=== PATIENT | male | born 1985 | race Caucasian/White ===

== ENCOUNTER 2023-05-21 15:38 | Outpatient (CLI) | payer BC ==
--- NOTE | 2023-05-21 16:20 | Sleep Patient Instructions ---
Sleep Center Visit Summary - Patient Visit Information Reason for Visit: Initial consult for evaluation of sleep disordered breathing and other sleep issues. - Patient Instructions Instructions Attached: Sleep Study Home Monitor, Sleep Study Additional Instructions: You will be completing a sleep study, either an in-lab polysomnography (PSG) or home sleep study (HST). You will follow-up in the sleep care office after the sleep study is completed to hear the results and talk about therapy, if needed. You will be called by our office staff to schedule this appointment, but you may contact us with any questions. - Clinic Information Contact: [facility] [address] [place] [id number] [email or web address] T: [phone]
--- NOTE | 2023-05-21 16:24 | SLEEP CARE CONSULTATION ---
Information from patient questionnaire entered by Ruel Haque. I have reviewed and concur with the information entered by Ruel Haque. This document represents the service I personally performed and the decisions made by me, Donna Zavala ARNP. History of Present Illness Service Date and Time: 05/21/2023 1538 Reason for Visit: New patient Chief Complaint: reports: Snoring, Excessive daytime sleepiness, Observed pauses in breathing, Fatigue Date of Onset: DO NOT KNOW Usual bedtime: 9PM Time it takes to fall asleep: 5MINS Snores at night: Yes Observed to quit breathing while asleep: Yes Sleeps alone due to snoring: No Number of times waking at night: 4 Reasons for waking at night: reports: Pain, Bathroom. denies: Choking, Snoring, Gasping for air Toss, Turn, or Twitch while sleeping: Yes Recalls having dreams: Yes Usually gets out of bed at: 8AM Feels refreshed in the morning: No Morning headache: No Sleepy or fatigued during the day: Yes Ever fallen asleep while driving: No Takes day naps: Yes (used to always take a nap in afternoon; with new job/no naps excpt wkend) Dreams during day naps: No Prior sleep studies: Yes Additional HPI information: I had the pleasure of seeing VELMA HUBBARD today regarding the possibility of him having a sleep disorder. His current complaints are excessive daytime sleepiness, fatigue, observed pauses in breathing and snoring. His has encouraged him to see re-evaluation because he still snores loudly and will stop breathing. She has told him that the snoring is worse. He feels tired all the times and never wakes up feeling rested. He did have a sleep study in 2008 but it was negative at that time for sleep disordered breathing. He has gained about 30 pounds or more in the last 5 years. He states his father has sleep apnea. 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 Have you smoked in the past 12 months: No Alcohol use: Yes Alcohol amount and frequency: 1 WEEK Caffeine use: Yes Caffeine amount and frequency: 2 DAILY Family History Family history of sleep disordered breathing: Yes Family Hx Sleep Apnea: Father: Sleep apnea - Treated Allergies and Home Medications Known drug allergies: Yes (SULFA) Drug allergies reviewed: Yes Home medication list reviewed: Yes Allergy and home medication list: Allergies Sulfa (Sulfonamide Antibiotics) Allergy (Verified 05/21/23 16:02) Home Medications Brexpiprazole [Rexulti] See Rx Instructions .ROUTE .COMPLEX 05/21/23 [History] Cholecalciferol (Vitamin D3) [Vitamin D3] See Rx Instructions .ROUTE .COMPLEX 05/21/23 [History] Venlafaxine [Effexor] See Rx Instructions .ROUTE .COMPLEX 05/21/23 [History] Review of Systems Weight gain over past 5 years: 30 Cardiovascular: denies: high blood pressure Urinary: reports: frequency Neurological: denies: head trauma Psychiatric: reports: anxiety, depression Ear/Nose/Throat: reports: wisdom teeth removed. denies: injury to nose, tonsillectomy Endocrine: denies: thyroid disease Physical Exam Vital signs obtained and entered by: RUEL Medina MA Blood Pressure: 141/91 (LEFT ARM) Cuff size: regular Heart Rate: 94 O2 Saturation: 97 Height: 5 ft 8 in Weight: 287 lb 3.2 oz Body Mass Index: 43.7 BMI Classification: Morbidly Obese Neck circumference: 22 Mouth and throat: narrow oropharynx Soft palate: long Hard palate: normal Uvula: normal Uvula visualization: 50% Mallampati Class II Tongue: enlarged in size with teeth heller on lateral edges Tonsils: 2+ Neck: normal w/o lymphadenopathy or thyromegaly Heart: regular rate and rhythm Lungs: clear bilaterally Impression and Plan 1. Suspected Obstructive Sleep Apnea-Hypopnea Syndrome, as suggested by a history of loud and irregular snoring, observed cessation of breath while asleep, unrefreshed sleep, and excessive daytime sleepiness. Narrow oropharynx and obesity are common predisposing factors for obstructive sleep apnea-hypopnea syndrome. I recommend proceeding to polysomnography to confirm the diagnosis and to assess severity. If the patient has significant sleep disordered breathing, a manual CPAP titration study will also be performed to find the optimal treatment pressure. I informed the patient of what the sleep studies involve and after some discussion, obtained agreement to proceed. The pathophysiology of obstructive sleep apnea-hypopnea syndrome was discussed with the patient and health risks of cardiovascular and cerebrovascular disease if not treated. 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 Patient agreed to plan. * Schedule polysomnography +- manual CPAP titration study and return in 1-2 weeks after the study to discuss result and initiate therapy. * Avoid long distance driving or driving when feeling sleepy. * Avoid alcohol, sedative and muscle relaxant around bedtime. * Attempt to lose weight. * Review instructions provided by trained office staff on how to prepare for the sleep study. * Return for follow-up after sleep study completed. Counseling Topics: Weight loss health impact Plan: PSG/HST Visit Type: In Office Time Spent with Patient (minutes): 26 Provider Statement: I spent 100% of the Face to Face Visit with the patient with greater than 50% spent counseling the patient and coordination of care.
[2023-05-21 16:25] VITALS: BP 141/91; O2SAT 97
== END 2023-05-21 15:39 | disposition home or self-care (01) ==
LOC: SC 15:38
PROVIDERS: ATTEND Nurse Practitioner Family
DX: G47.10 Hypersomnia, unspecified (principal); R53.83 Other fatigue; R06.83 Snoring; G47.8 Other sleep disorders; R06.81 Apnea, not elsewhere classified; F32.A Depression, unspecified; E66.01 Morbid (severe) obesity due to excess calories; Z68.41 Body mass index [BMI] 40.0-44.9, adult
CPT/HCPCS: 99202; 99212

== ENCOUNTER 2023-06-29 07:28 | Outpatient (CLI) | payer BC | END 2023-06-29 07:29 | disposition home or self-care (01) | LOC: SC 07:28 | PROVIDERS: ATTEND Nurse Practitioner Family | DX: G47.33 Obstructive sleep apnea (adult) (pediatric) (principal); R09.02 Hypoxemia | CPT/HCPCS: 95806 ==

== ENCOUNTER 2023-07-20 14:52 | Outpatient (CLI) | payer BC ==
--- NOTE | 2023-07-20 15:14 | Sleep Patient Instructions ---
Sleep Center Visit Summary - Patient Visit Information Reason for Visit: Sleep study follow-up - Patient Instructions Instructions Attached: CPAP Additional Instructions: You are being started on CPAP therapy. You will be completing a titration sleep study in our sleep lab where you will be sleeping with the CPAP machine on and we will be adjusting your pressures to find your optimal pressure settings. Once we have your results back, we will call you and schedule a follow up to go over the results, you may contact us with any questions or issues as needed. - Clinic Information Contact: [facility] [address] [place] [address] [email or web address] T: [phone]
--- NOTE | 2023-07-20 15:18 | SLEEP CARE CONSULTATION ---
Information from patient questionnaire entered by Martha Haque. I have reviewed and concur with the information entered by Martha Haque. This document represents the service I personally performed and the decisions made by , Donna Zavala ARNP. History of Present Illness Service Date and Time: 07/20/20231451 Initial [place] Sleepiness Scale score: 6 (05/21/23) Current [place] Sleepiness Scale score: 11 Additional HPI information: VELMA HUBBARD returns for follow up and results of the recently performed home sleep study. The sleep study showed severe obstructive sleep apnea with an average AHI of 50.9 and john oxygen saturation of 73%. I explained the pathophysiology behind obstructive sleep apnea. We then spent quite a bit of time discussing different treatment options. For mild obstructive sleep apnea, surgery and oral appliance are alternatives to nasal CPAP therapy but in moderate or severe cases, nasal CPAP is the most effective and reliable treatment. I reviewed the impact of weight changes on sleep apnea and strongly recommended losing weight. After some discussion, the patient opted to go with the nasal CPAP therapy. A manual titration study will be ordered to find optimal pressure with office adjustments. Patient does not drink alcohol. Patient was cautioned about risks of drowsy driving until sleepiness symptoms resolve. Patient denies drowsy driving. Sleep Study - Results Type of Sleep Study: Home sleep study (COMPLETED 06/29/23) Prior sleep studies: Yes Polysomnography/Home Sleep Study results: Physician Impression: The quality of the study is good. The length of the study is adequate (> 240 minutes). Please also see the tabulated and graphic data. 1. Obstructive Sleep Apnea-Hypopnea (ICD-10 G47.33), severe, with an AHI of 50.9/hr and john SaO2 of 73%. During the study, the patient had 277 apneas (277 obstructive, 0 central, 0 mixed) and 238 hypopneas. The longest episode lasted 86.0 seconds. The respiratory events occurred more frequently during supine sleep (supine AHI was 86.4 and non-supine, 41.18). 2. Hypoxemia (ICD-10 R09.02), moderate, with the lowest oxygen saturation of 73 % and 66.3 minutes with SaO2 under 90%. Baseline oxygen saturation was normal (Average oxygen saturation was 92%). Allergies and Home Medications Known drug allergies: Yes (as listed) Drug allergies reviewed: Yes Home medication list reviewed: Yes (no changes) Allergy and home medication list: Allergies Sulfa (Sulfonamide Antibiotics) Allergy (Verified 07/16/23 16:09) Review of Systems Review of systems same as previous: Yes (no changes) Physical Exam Vital signs obtained and entered by: DONNA ARREDONDO Blood Pressure: 121/82 Cuff size: long (left arm) Heart Rate: 70 O2 Saturation: 99 Height: 5 ft 8 in Weight: 284 lb 9.6 oz Body Mass Index: 43.2 BMI Classification: Morbidly Obese Impression and Plan 1. Obstructive Sleep Apnea-Hypopnea Syndrome, severe, with lowest oxygen saturation of 73%. Obviously this is the cause of the patients symptoms of unrefreshed sleep, and excessive daytime sleepiness. Positive pressure therapy could benefit anxiety and depression. As mentioned above, the patient will be started on nasal autoCPAP therapy. A manual titration study will be completed to find optimal treatment pressure with office adjustments. Compliance guidelines also reviewed. A copy of compliance guidelines will be given for reference at check out. Because the apnea is more severe supine, I instructed to avoid sleeping supine using pillow positioning until able to start CPAP use. 2. Obesity, unspecified. Currently patients BMI is 43.2. Obesity increases the risk of apnea, CPAP pressure requirements and overall health risks especially cardiovascular and diabetes. Thus patient is advised to lose weight. * Titration study. * Attempt to lose weight. * Avoid alcohol consumption near bedtime. * Avoid supine sleep until using CPAP. * The patient is again cautioned about driving until sleepiness completely resolves. * Return after titration study to be set up on PAP therapy. Counseling Topics: Sleeping position, Weight loss health impact Plan: Titration study and followup Visit Type: In Office Time Spent with Patient (minutes): 20 Provider Statement: I spent 100% of the Face to Face Visit with the patient with greater than 50% spent counseling the patient and coordination of care.
[2023-07-20 15:52] VITALS: BP 121/82; O2SAT 99
== END 2023-07-20 14:53 | disposition home or self-care (01) ==
LOC: SC 14:52
PROVIDERS: ATTEND Nurse Practitioner Family
DX: G47.33 Obstructive sleep apnea (adult) (pediatric) (principal); E66.01 Morbid (severe) obesity due to excess calories; Z68.41 Body mass index [BMI] 40.0-44.9, adult
CPT/HCPCS: 99212; 99213

== ENCOUNTER 2023-09-03 20:35 | Outpatient (CLI) | payer BC | END 2023-09-03 20:36 | disposition home or self-care (01) | LOC: SC 20:35 | PROVIDERS: ATTEND Nurse Practitioner Family | DX: G47.33 Obstructive sleep apnea (adult) (pediatric) (principal); G47.61 Periodic limb movement disorder | CPT/HCPCS: 95811 ==

== ENCOUNTER 2023-10-01 15:42 | Outpatient (CLI) | payer BC ==
--- NOTE | 2023-10-01 16:07 | Sleep Patient Instructions ---
Sleep Center Visit Summary - Patient Visit Information Reason for Visit: Titration study follow-up - Patient Instructions Instructions Attached: CPAP Additional Instructions: You are being started on CPAP therapy with pressure setting at 5-10 cmH2O. You will need to call the sleep care office to set up your follow up once you have your CPAP machine to check compliance and response to therapy at that time. You may call the office with any concerns about pressure feeling too low or too much for adjustment, if needed. You should contact DME supplier for any questions or concerns about mask or equipment. Please call office to schedule a follow up appointment in the sleep care office one month after obtaining new device. - Clinic Information Contact: [facility] [address] [place] [address] [email or web address] T: [phone]
--- NOTE | 2023-10-01 16:09 | SLEEP CARE CONSULTATION ---
Information from patient questionnaire entered by Martha Haque. I have reviewed and concur with the information entered by Martha Haque. This document represents the service I personally performed and the decisions made by , Donna Zavala ARNP. History of Present Illness Service Date and Time: 10/01/20231541 Initial Malcolm Sleepiness Scale score: 6 (05/21/23) Current Malcolm Sleepiness Scale score: 15 Additional HPI information: VELMA HUBBARD returns for follow up of the sleep study with a manual CPAP titration study performed on 09/03/23. Previous study done on 06/29/23 showed severe obstructive sleep apnea with AHI 50.9. The patient was informed of the following polysomnography findings: CPAP was initiated at 7 cmH2O and titrated up to CPAP at 17 cmH2O. CPAP at 8 cmH2O appeared to be optimal (AHI of 1.1 per hour on the pressure). There was supine sleep but no REM sleep on the pressure. Oxygen saturation was normal. The patient appeared to have tolerated positive airway pressure therapy very well. The patients sleep efficiency was normal. The sleep architecture was also normal. There was moderate periodic leg movement of sleep not associated with sleep fragmentation. I explained how CPAP machine works and what to expect when using the machine. Using CPAP every night in order to get used to it was emphasized. Patient advised to put CPAP mask on before getting into bed so as not to fall asleep without CPAP. To assist acclimation to CPAP use, it could also be used for a short time during day while reading or watching TV. The patient was instructed to call the CPAP supplier to discuss any mechanical problem that may occur. If the mask given is uncomfortable or is difficult to keep on through the night even with adjustment, contact the CPAP supplier as many will replace with another mask style if notified before 30 days. If snoring or perceives is not getting enough air or too much air from the machine, notify this office. Patient does not drink alcohol. Patient was cautioned about risks of drowsy driving until sleepiness symptoms resolve. Patient denies drowsy driving. Sleep Study - Results Type of Sleep Study: Home sleep study (COMPLETED 06/29/23 TITRATIN F/U COMPLETED 09/03/23) Prior sleep studies: Yes Polysomnography/Home Sleep Study results: IMPRESSION: The quality of the study is good. CPAP was initiated at 7 cmH2O and titrated up to CPAP at 17 cmH2O. CPAP at 8 cmH2O appeared to be optimal (AHI of 1.1 per hour on the pressure). There was supine sleep but no REM sleep on the pressure. Oxygen saturation was normal. The patient appeared to have tolerated positive airway pressure therapy very well. The patients sleep efficiency was normal. The sleep architecture was also normal. There was moderate periodic leg movement of sleep not associated with sleep fragmentation. Cardiac rhythm was normal sinus rhythm without significant arrhythmia. No abnormal b ehavior (parasomnia) observed during the night. Allergies and Home Medications Known drug allergies: Yes (as listed) Drug allergies reviewed: Yes Home medication list reviewed: Yes (Modafinil 200 mg) Allergy and home medication list: Allergies Sulfa (Sulfonamide Antibiotics) Allergy (Verified 09/29/23 10:12) Review of Systems Review of systems same as previous: Yes (no changes) Physical Exam Vital signs obtained and entered by: Donna Miller NP Blood Pressure: 135/79 Cuff size: long (right arm) Heart Rate: 84 O2 Saturation: 97 Height: 5 ft 8 in Weight: 281 lb 3.2 oz Body Mass Index: 42.7 BMI Classification: Morbidly Obese Impression and Plan 1. Obstructive Sleep Apnea-Hypopnea Syndrome, severe. Patient returns to the office for results of his titration study. Positive pressure therapy could benefit anxiety and depression. His optimal pressure appeared to be at 8 cm H2O and APAP pressure 5-10 cm H2O could also be appropriate. He will be started on nasal autoCPAP therapy with pressure set at 5-10 cmH2O. Compliance guidelines also reviewed. A copy of compliance guidelines will be given for reference at check out. 2. Periodic limb movement, moderate, that did not fragment patients sleep. Periodic limb movement of sleep (PLMS) is characterized by episodes of repetitive limb movements that occur during sleep and usually involve the lower limbs. The etiology is unknown. Patient was advised that no treatment is needed at this time. If symptoms increase, then further evaluation is indicated. 3. Obesity, unspecified. Currently patients BMI is 42.7. Obesity increases the risk of apnea, CPAP pressure requirements and overall health risks especially cardiovascular and diabetes. Thus patient is advised to lose weight. * Nasal auto CPAP therapy, pressure at 5-10 cm H2O. * Attempt to lose weight. * Avoid alcohol consumption near bedtime. * Avoid supine sleep until using CPAP. * The patient is again cautioned about driving until sleepiness completely resolves. * Return one month after CPAP obtained. I will assess response to therapy and compliance at that time. Counseling Topics: Weight loss health impact Prescriptions: Auto CPAP Plan: start cpap and compliance followup Visit Type: In Office Time Spent with Patient (minutes): 20 Provider Statement: I spent 100% of the Face to Face Visit with the patient with greater than 50% spent counseling the patient and coordination of care.
[2023-10-01 16:11] VITALS: BP 135/79; O2SAT 97
== END 2023-10-01 15:43 | disposition home or self-care (01) ==
LOC: SC 15:42
PROVIDERS: ATTEND Nurse Practitioner Family
DX: G47.33 Obstructive sleep apnea (adult) (pediatric) (principal); G47.61 Periodic limb movement disorder; E66.01 Morbid (severe) obesity due to excess calories; Z68.41 Body mass index [BMI] 40.0-44.9, adult
CPT/HCPCS: 99212; 99213

== ENCOUNTER 2023-12-08 15:16 | Outpatient (CLI) | payer BC ==
--- NOTE | 2023-12-08 16:11 | Sleep Patient Instructions ---
Sleep Center Visit Summary - Patient Visit Information Reason for Visit: First compliance for PAP therapy - Patient Instructions Additional Instructions: You were here for follow up of CPAP therapy. You will be continued on CPAP therapy with pressure at 5-10 cmH2O. You should follow up with sleep care in 3 months. You may contact us sooner for any questions or concerns. - Clinic Information Contact: [facility] [address] [place] [address] [email or web address] T: [phone]
--- NOTE | 2023-12-08 16:14 | SLEEP CARE CONSULTATION ---
Information from patient questionnaire entered by Freddy Rondon. I have reviewed and concur with the information entered by Freddy Rondon. This document represents the service I personally performed and the decisions made by , Donna Zavala ARNP. History of Present Illness Service Date and Time: 12/08/2023 1516 Previous diagnosis: Severe, Obstructive Sleep Apnea-Hypopnea Syndrome AHI: 50.9 Reason for follow up: first compliance (Set up 10/19) Equipment type: CPAP (Airsense 11, s/u 10/15/2023) Equipment obtained from: [employer] ([employer]) Mask style: Full face Mask brand: [employer] ([employer]) Backup mask available: No Prior sleep studies: Yes Type of Sleep Study: Home sleep study (COMPLETED 06/29/23 TITRATIN F/U COMPLETED 09/03/23) HPI additional information: VELMA HUBBARD was diagnosed to have severe, AHI 50.9, obstructive sleep apnea- hypopnea syndrome and returned today for CPAP therapy first compliance follow- up. Sleep Study - Results Type of Sleep Study: Home sleep study (COMPLETED 06/29/23 TITRATIN F/U COMPLETED 09/03/23) Prior sleep studies: Yes CPAP Compliance Data - Data Reviewed with Patient Average duration of nightly device use: 8 h 38 min Compliance rate %: 100 (30/30 days used) Current pressure setting (cmH2O): 5 - 10 Average residual AHI: 1.0 Central apnea: 0.1 Obstructive apnea: 0.6 Hypopnea: 0.2 Average large leak: 1.7 L/min Subjective Missed days of use due to: reports: travel Patient concerns: reports: condensation in mask/hose. denies: aerophagia, mask discomfort, air blowing in eyes, mask leak noise, nasal congestion, dry mouth, nose, throat, epistaxis Observed to snore while using device: No Current pressure setting perceived as: comfortable On therapy, patient: reports: sleeping better, awakening more refreshed, being more awake and alert during the day, more rested overall. denies: drowsiness while driving Initial [place] Sleepiness Scale score: 6 (05/21/2023) Current [place] Sleepiness Scale score: 5 (12/08/2023) Allergies and Home Medications Known drug allergies: Yes (as listed) Drug allergies reviewed: Yes Home medication list reviewed: Yes (no changes) Allergy and home medication list: Allergies Sulfa (Sulfonamide Antibiotics) Allergy Review of Systems Review of systems same as previous: Yes (no changes) Physical Exam Vital signs obtained and entered by: Donna Miller NP Blood Pressure: 128/79 Cuff size: long (right arm) Heart Rate: 74 O2 Saturation: 98 Height: 5 ft 8 in Weight: 275 lb 3.2 oz Body Mass Index: 41.8 BMI Classification: Morbidly Obese Impression and Plan 1. Obstructive Sleep Apnea-Hypopnea Syndrome, severe, with good treatment compliance and good apnea control. On CPAP therapy, the patient has better sleep quality and is more rested overall. He has significant improvement of his sleep apnea and is satisfied with current CPAP therapy. He has had a little bit of trouble with condensation in the tubing and I adjusted the humidifier from 4 to 3 to see if that will help to resolve the problem. He may let me know if he still needs further adjustment of the humidifier or heated hose. I will have him follow-up in about 3 months to see how he is doing. Patient's apnea severity and rationale for treatment to reduce apnea, improve sleep quality and reduce cardiovascular and cerebrovascular events was reviewed. I also reviewed the benefit of consistent device use of CPAP for depression/anxiety. 2. Obesity, unspecified. Currently patients BMI is 41.8. Obesity increases the risk of apnea, CPAP pressure requirements and overall health risks especially cardiovascular and diabetes. Thus patient is advised to lose weight. * Continue auto CPAP pressure at 5-10 cmH2O * Notify me if snoring with mask or feeling that the pressure is too much or too little * Attempt to lose weight * Call this office if any problems using CPAP * Return for follow up in 3 months, or sooner if concerns arise Counseling Topics: Spare mask, Weight loss health impact Follow up with Sleep Care in: 3 months Visit Type: In Office Time Spent with Patient (minutes): 20 Provider Statement: I spent 100% of the Face to Face Visit with the patient with greater than 50% spent counseling the patient and coordination of care.
[2023-12-08 16:17] VITALS: BP 128/79; O2SAT 98
== END 2023-12-08 15:17 | disposition home or self-care (01) ==
LOC: SC 15:16
PROVIDERS: ATTEND Nurse Practitioner Family
DX: G47.33 Obstructive sleep apnea (adult) (pediatric) (principal); E66.01 Morbid (severe) obesity due to excess calories; Z68.41 Body mass index [BMI] 40.0-44.9, adult
CPT/HCPCS: 99212; 99213